=== PATIENT | female | born 1955 | race Caucasian/White ===

== ENCOUNTER 2022-08-31 06:45 | Day surgery (SDC) | payer OTHER ==
[~2022-08-31] VITALS: Ht 157.5 cm; Wt 86.2 kg
[~2022-08-31 06:45] MED LIST: NAPR500T14 PO
[2022-08-31] MEDS ORDERED: IBU600 MG PO (08:54)
== END 2022-08-31 12:20 | disposition home or self-care (01) ==
LOC: CIR.AMB 06:45
PROVIDERS: ATTEND Obstetrics & Gynecology Gynecology
DX: N85.01 Benign endometrial hyperplasia (principal); N95.0 Postmenopausal bleeding; I10 Essential (primary) hypertension; Z20.822 Contact with and (suspected) exposure to COVID-19